=== PATIENT | male | born 1965 | race Two or more races ===

== ENCOUNTER 2023-12-24 07:33 | Day surgery (SDC) | payer OTHER ==
[~2023-12-24] VITALS: Ht 182.9 cm; Wt 171.5 kg
[2023-12-24] MEDS ORDERED: PROPOFOL 10 MG/ML 20 ML IV ONE (10:09)
[2023-12-24] MEDS ORDERED: DexAMETHasone SOD PHOS 10MG/1ML VIAL INJ ONE (10:09)
[2023-12-24] MEDS ORDERED: MIDAZOLAM HCL 2MG/2ML 2ml VIAL (1mg/ml) ONE (10:09)
[2023-12-24] MEDS ORDERED: fentaNYL CITRATE 100 MCG/2 ML VL ONE (10:09)
[2023-12-24] MEDS ORDERED: KETAMINE 50mg/ML 1ml syringe ONE (10:10)
[2023-12-24 10:35] VITALS: PULSE 70; RESP 17; TEMP 98.2; O2SAT 95
[2023-12-24 10:50] VITALS: BP 117/72; PULSE 71; RESP 16; O2SAT 94
== END 2023-12-24 11:15 | disposition home or self-care (01) ==
LOC: GI 07:33
PROVIDERS: ATTEND Internal Medicine Gastroenterology
DX: Z12.11 Encounter for screening for malignant neoplasm of colon (principal); D12.2 Benign neoplasm of ascending colon; K57.30 Diverticulosis of large intestine without perforation or abscess without bleeding; I10 Essential (primary) hypertension; E11.9 Type 2 diabetes mellitus without complications; E78.5 Hyperlipidemia, unspecified; G47.33 Obstructive sleep apnea (adult) (pediatric); Z79.82 Long term (current) use of aspirin; Z79.899 Other long term (current) drug therapy; Z98.890 Other specified postprocedural states; Z87.891 Personal history of nicotine dependence
CPT/HCPCS: 45380; 82962; 88305; J1100; J2250; J2704; J3010; J7030